=== PATIENT | female | born 1955 | race Caucasian/White ===

== ENCOUNTER 2019-01-01 16:17 | Emergency (ER) | payer BC ==
--- NOTE | 2019-01-01 17:57 | XR ---
EXAMINATION TYPE: XR chest 2V DATE OF EXAM: 01/01/2019 COMPARISON: 06/08/2013 HISTORY: Cough TECHNIQUE: Frontal and lateral views of the chest are obtained. FINDINGS: There is some small linear density in the left midlung. Heart and mediastinum are normal. Diaphragm is normal. There are chest leads. Bony thorax is intact. IMPRESSION: Minimal scarring or subsegmental atelectasis left midlung. Normal heart.
[2019-01-01 18:05] LABS: Basophils # (A) 0.1 k/uL (0-0.2); Basophils % (A) 1 %; Eosinophils # (A) 0.6 k/uL (0-0.7); Eosinophils % (A) 6 %; HGB 11.5 gm/dL (11.4-16.0); Lymphocytes # (A) 1.7 k/uL (1.0-4.8); Lymphocytes % (A) 17 %; MCH 25.8 pg (25.0-35.0); MCHC 31.9 g/dL (31.0-37.0); MCV 80.8 fL (80.0-100.0); Mean Platelet Volume 8.5; Monocytes # (A) 0.7 k/uL (0-1.0); Monocytes % (A) 7 %; Neutrophils % (A) 69 %; Platelet Count 277 k/uL (150-450); RBC 4.45 m/uL (3.80-5.40); RDW 14.7 % (11.5-15.5); WBC 10.1 k/uL (3.8-10.6)
[2019-01-01 18:15] LABS: Albumin 3.3 g/dL (3.5-5.0); C Reactive Protein 28.9 mg/L (<10.0); Calcium 9.8 mg/dL (8.4-10.2); Magnesium 1.8 mg/dL (1.6-2.3); Potassium 5.3 mmol/L (3.5-5.1); Total Bilirubin 0.3 mg/dL (0.2-1.3); Total Protein 6.2 g/dL (6.3-8.2)
[2019-01-01 18:38] LABS: INR 0.8 (<1.2); Prothrombin Time 9.3 sec (9.0-12.0)
[2019-01-01 18:40] LABS: Partial Thromboplastin Time 20.8 sec (22.0-30.0)
--- NOTE | 2019-01-01 18:58 | CT ---
EXAMINATION TYPE: CT soft tissue neck wo con DATE OF EXAM: 01/01/2019 HISTORY: Right sided mandible pain. COMPARISON: CT DLP: 267.8 mGycm. Automated Exposure Control for Dose Reduction was Utilized. TECHNIQUE: Multiple axial sections were obtained of the cervical soft tissues from the aortic arch to the orbits without contrast. FINDINGS: Epiglottis is normal. Subglottic trachea appears normal. There is heterogeneous density in the thyroi d gland with calcifications. There are multiple enlarged bilateral submandibular lymph nodes that jane sure up to 2 cm. Submandibular salivary glands are symmetric. Parotid glands are symmetric. The jordan bular ring appears intact. There is anterior subluxation of the mandibular condyles. The jaw is close d. There is fairly normal aeration of the visualized paranasal sinuses. Tonsils and adenoids are within normal limits. There is no evidence of pharyngeal mass. The tongue appears normal. The maxilla appear s intact. I see no bony destructive process. IMPRESSION: There is bilateral abnormal anterior subluxation of the mandibular condyles with the mout h in closed position. No fracture seen. Submandibular lymphadenopathy there is worse on the right side.
[2019-01-01 19:46] LABS: Erythrocyte Sedimentation Rate 41 mm/hr (0-20)
[2019-01-01] MEDS ORDERED: LIDOCAINE 1% INJ 10MG/ML (20 ML MDV) SQ ONE (20:30)
[2019-01-01] MEDS ORDERED: CLINDAMYCIN 150 MG CAP PO STA (22:22)
--- NOTE | 2019-01-01 22:22 | ED ---
General Adult HPI - General Chief complaint: Recheck/Abnormal Lab/Rx Stated complaint: Bradycardia Source: EMS Mode of arrival: EMS Limitations: no limitations - History of Present Illness Initial comments: The patient is a 63-year-old female who presents to the emergency department from an urgent care. She reports that she went into the urgent care earlier today for a dental abscess. Vitals were obtained and was noted the patient was bradycardic. They from an EKG and the patient which demonstrated a markedly sinus bradycardia. Because of this did recommend transfer to the hospital. The patient does arrive by EMS. She states that she has no complaints of chest pain, shortness of breath, syncope or presyncope. She has a previous cardiac history. Denies history of arrhythmias or IA. Patient does take several medications for hypertension. She denies the possibility taking excess of her medication. Reports that she has never had a stress test. She is unsure of her last EKG. She noted to have right-sided jaw pain and swelling which began yesterday. She has poor dentition and was concerned for an abscessed tooth. She denies any oral swelling. Denies neck pain or stiffness. No difficulty swallowing. No reported fevers, chills, nausea or vomiting. No drooling, trismus, hoarseness or stridor. No abdominal pain or changes in bowel or bladder habits. There are no alleviating, precipitating or modifying factors - Related Data Home Medications Medication Instructions Recorded Confirmed Allopurinol [Zyloprim] 100 mg PO DAILY 01/01/19 01/01/19 Aspirin [[place] Aspirin EC] 81 mg PO DAILY 01/01/19 01/01/19 Atorvastatin Calcium [Lipitor] 10 mg PO HS 01/01/19 01/01/19 Calcitriol 0.5 mcg PO TU 01/01/19 01/01/19 Cholecalciferol [Vitamin D3 (25 2,000 unit PO DAILY 01/01/19 01/01/19 Mcg = 1000 Iu)] Ferrous Sulfate [Feosol] 325 mg PO DAILY 01/01/19 01/01/19 Glimepiride [Amaryl] 2 mg PO BID 01/01/19 01/01/19 Hydrochlorothiazide [Hydrodiuril] 25 mg PO DAILY 01/01/19 01/01/19 Lisinopril 20 mg PO BID 01/01/19 01/01/19 Metoprolol Tartrate [Lopressor] 50 mg PO DAILY 01/01/19 01/01/19 Potassium Chloride ER [K-Dur 20] 20 meq PO BID 01/01/19 01/01/19 Spironolactone [Aldactone] 25 mg PO DAILY 01/01/19 01/01/19 amLODIPine [Norvasc] 5 mg PO BID 01/01/19 01/01/19 cloNIDine HCL [Catapres] 0.2 mg PO TID 01/01/19 01/01/19 sitaGLIPtin [Januvia] 100 mg PO DAILY 01/01/19 01/01/19 Previous Rx's Medication Instructions Recorded Clindamycin [Cleocin] 450 mg PO Q8HR #63 capsule 01/01/19 Allergies Allergy/AdvReac Type Severity Reaction Status Date / Time No Known Allergies Allergy Verified 01/01/19 16:46 Review of Systems ROS Statement: Those systems with pertinent positive or pertinent negative responses have been documented in the HPI. ROS Other: All systems not noted in ROS Statement are negative. Past Medical History Past Medical History: Diabetes Mellitus, Hypertension, Renal Disease History of Any Multi-Drug Resistant Organisms: None Reported Past Surgical History: Cholecystectomy, Tubal Ligation Past Psychological History: No Psychological Hx Reported Smoking Status: Never smoker Past Alcohol Use History: None Reported Past Drug Use History: None Reported General Exam Limitations: no limitations Course Vital Signs 01/01/19 01/01/19 01/01/19 16:35 16:50 18:30 Temperature 98.0 F Pulse Rate 45 L 48 L Pulse Rate [ 48 L Senior [employer] ] Respiratory 18 16 Rate Blood Pressure 149/66 147/68 O2 Sat by Pulse 98 98 Oximetry 01/01/19 22:49 Temperature 97.7 F Pulse Rate 87 Pulse Rate [ Senior [employer] ] Respiratory 16 Rate Blood Pressure 167/67 O2 Sat by Pulse 97 Oximetry EKG Findings - EKG Comments: EKG Findings:: EKG demonstrates a sinus bradycardia with a ventricular rate of 46. MA interval 184. QRS 88. QTc 383. There are acute ST segment elevations in 2 aVF and V2 through V6. There are cervical changes in 1 and aVL. The patient does bring an EKG with her from an outside facility which demonstrates ST elevation in leads 1, 2, V2 through V3. There are reciprocal changes in aVL Medical Decision Making - Medical Decision Making Upon arrival the patient is placed into room 3. She has hooked up to continue his pulse ox and cardiac monitoring. A 12-lead EKG is performed which demonstrates a markedly his bradycardia. There is minimal ST elevation. The patient is asymptomatic at this time. Evaluation of the patient's right jaw does reveal appreciable swelling. Because of this I did recommend laboratory studies and a CT of the patient's neck. Upon return results I did discuss them with the patient. The patient does not have any issues opening or closing her mouth. She does report a chronic history of underbite. I did attempt to drain the patient's dental abscess however I and unsuccessful as the abscesses 2D. I did recommend admission to the hospital for evaluation by ENT, IV antibiotics and evaluation by cardiology for her bradycardia. The patient refused stating that she wanted to go home. Discussed the risks of leaving with the patient. She is of sound mind kibble making her own decisions. I informed her of the risks of bleeding to include permanent disability and . Patient understood. She does have her and daughter at bedside who agree with her decision. Informed patient that she would be leaving AGAINST MEDICAL ADVICE and she understood this. I did provide the patient with 450 mg of clindamycin and a course of clindamycin at home. She must follow up with her dentist for further treatment. If she has any new or worsening symptoms she should return to the emergency department. Patient was in agreement she will plan and discharged against medical advice - Lab Data Result diagrams: 01/01/19 17:18 01/01/19 17:18 Lab Results 01/01/19 01/01/19 01/01/19 Range/Units 17:18 17:18 17:18 WBC 10.1 (3.8-10.6) k/uL RBC 4.45 (3.80-5.40) m/uL Hgb 11.5 (11.4-16.0) gm/dL Hct 36.0 (34.0-46.0) % MCV 80.8 (80.0-100.0) fL MCH 25.8 (25.0-35.0) pg MCHC 31.9 (31.0-37.0) g/dL RDW 14.7 (11.5-15.5) % Plt Count 277 (150-450) k/uL Neutrophils % 69 % Lymphocytes % 17 % Monocytes % 7 % Eosinophils % 6 % Basophils % 1 % Neutrophils # 7.0 (1.3-7.7) k/uL Lymphocytes # 1.7 (1.0-4.8) k/uL Monocytes # 0.7 (0-1.0) k/uL Eosinophils # 0.6 (0-0.7) k/uL Basophils # 0.1 (0-0.2) k/uL ESR 41 H (0-20) mm/hr PT 9.3 (9.0-12.0) sec INR 0.8 (<1.2) APTT 20.8 L (22.0-30.0) sec Sodium 135 L (137-145) mmol/L Potassium 5.3 H (3.5-5.1) mmol/L Chloride 105 (98-107) mmol/L Carbon Dioxide 20 L (22-30) mmol/L Anion Gap 10 mmol/L BUN 43 H (7-17) mg/dL Creatinine 1.84 H (0.52-1.04) mg/dL Est GFR (CKD-EPI)AfAm 33 (>60 ml/min/1.73 sqM) Est GFR (CKD-EPI)NonAf 29 (>60 ml/min/1.73 sqM) Glucose 279 H (74-99) mg/dL Plasma Lactic Acid Johnny (0.7-2.0) mmol/L Calcium 9.8 (8.4-10.2) mg/dL Magnesium 1.8 (1.6-2.3) mg/dL Total Bilirubin 0.3 (0.2-1.3) mg/dL AST 15 (14-36) U/L ALT 16 (9-52) U/L Alkaline Phosphatase 151 H (38-126) U/L Troponin I (0.000-0.034) ng/mL C-Reactive Protein 28.9 H (<10.0) mg/L Total Protein 6.2 L (6.3-8.2) g/dL Albumin 3.3 L (3.5-5.0) g/dL 01/01/19 01/01/19 Range/Units 17:18 18:53 WBC (3.8-10.6) k/uL RBC (3.80-5.40) m/uL Hgb (11.4-16.0) gm/dL Hct (34.0-46.0) % MCV (80.0-100.0) fL MCH (25.0-35.0) pg MCHC (31.0-37.0) g/dL RDW (11.5-15.5) % Plt Count (150-450) k/uL Neutrophils % % Lymphocytes % % Monocytes % % Eosinophils % % Basophils % % Neutrophils # (1.3-7.7) k/uL Lymphocytes # (1.0-4.8) k/uL Monocytes # (0-1.0) k/uL Eosinophils # (0-0.7) k/uL Basophils # (0-0.2) k/uL ESR (0-20) mm/hr PT (9.0-12.0) sec INR (<1.2) APTT (22.0-30.0) sec Sodium (137-145) mmol/L Potassium (3.5-5.1) mmol/L Chloride (98-107) mmol/L Carbon Dioxide (22-30) mmol/L Anion Gap mmol/L BUN (7-17) mg/dL Creatinine (0.52-1.04) mg/dL Est GFR (CKD-EPI)AfAm (>60 ml/min/1.73 sqM) Est GFR (CKD-EPI)NonAf (>60 ml/min/1.73 sqM) Glucose (74-99) mg/dL Plasma Lactic Acid Johnny 1.2 (0.7-2.0) mmol/L Calcium (8.4-10.2) mg/dL Magnesium (1.6-2.3) mg/dL Total Bilirubin (0.2-1.3) mg/dL AST (14-36) U/L ALT (9-52) U/L Alkaline Phosphatase (38-126) U/L Troponin I <0.012 (0.000-0.034) ng/mL C-Reactive Protein (<10.0) mg/L Total Protein (6.3-8.2) g/dL Albumin (3.5-5.0) g/dL Disposition Clinical Impression: Dental abscess, Sinus bradycardia, Chronic kidney disease Disposition: Left Against Medical Advice Condition: Serious Instructions (If sedation given, give patient instructions): Dental Abscess (ED) Additional Instructions: I recommended hospital admission. You are leaving AGAINST MEDICAL ADVICE. Please follow-up with her primary care physician tomorrow. You must follow-up with your dentist. You will need a complete cardiac workup. Return to the emergency room if you have any new or worsening symptoms or agree to hospital admission Prescriptions: Clindamycin [Cleocin] 450 mg PO Q8HR #63 capsule Is patient prescribed a controlled substance at d/c from ED?: No Referrals: Antonieta Bolanos MD [Primary Care Provider] - 1-2 days Time of Disposition: 22:27
[2019-01-01 22:52] VITALS: BP 167/67; PULSE 87; RESP 16; TEMP 97.7
== END 2019-01-01 22:52 | disposition left against medical advice (07) ==
LOC: EC 16:17
DX: R00.1 Bradycardia, unspecified (principal); K04.7 Periapical abscess without sinus; I12.9 Hypertensive chronic kidney disease with stage 1 through stage 4 chronic kidney disease, or unspecified chronic kidney disease; N18.9 Chronic kidney disease, unspecified; E11.22 Type 2 diabetes mellitus with diabetic chronic kidney disease; Z90.49 Acquired absence of other specified parts of digestive tract; Z98.51 Tubal ligation status; Z79.82 Long term (current) use of aspirin; Z79.84 Long term (current) use of oral hypoglycemic drugs; Z79.899 Other long term (current) drug therapy
CPT/HCPCS: 36415; 93005; 80053; 85652; 83605; 83735; 84484; 85025; 85610; 85730; 86140; 71046; 70490; 99285; J2001

== ENCOUNTER → 2020-07-26 | Outpatient (CLI) | payer BC ==
[2020-07-30 16:38] LABS: Metanephrine, Free <25 pg/mL (< OR = 57); Normetanephrine, Free 72 pg/mL (< OR = 148); Total, Free (MN + NMN) 72 pg/mL (< OR = 205)
== END | disposition home or self-care (01) ==
LOC: LABWHC1 08:27
PROVIDERS: ATTEND Urology
DX: E27.9 Disorder of adrenal gland, unspecified (principal); R94.4 Abnormal results of kidney function studies
CPT/HCPCS: 36415; 82088; 82533; 83835; 84244

== ENCOUNTER 2022-03-13 13:42 | Observation (INO) | payer MEDICARE ==
--- NOTE | 2022-03-13 14:49 | ED ---
General Adult HPI - General Chief complaint: Syncope Stated complaint: Syncope Time Seen by Provider: 03/13/22 13:57 Source: patient, EMS, RN notes reviewed Mode of arrival: EMS Limitations: no limitations - History of Present Illness Initial comments: Patient is a pleasant 66-year-old female presenting to the emergency department with syncopal episode. Episode occurred prior to arrival. Patient was waiting in line at [facility] when she lightheaded and then passed out. Patient did fall down however no injury. Patient denies head trauma. No headache or confusion. No weakness. No chest pain or dyspnea. No abdominal or back pain. Patient did have an episode of syncope many years ago. - Related Data Home Medications Medication Instructions Recorded Confirmed Aspirin [[place] Aspirin EC] 81 mg PO DAILY 01/01/19 01/01/19 Atorvastatin Calcium [Lipitor] 10 mg PO HS 01/01/19 01/01/19 Cholecalciferol [Vitamin D3 (25 2,000 unit PO DAILY 01/01/19 01/01/19 Mcg = 1000 Iu)] Ferrous Sulfate [Feosol] 325 mg PO DAILY 01/01/19 01/01/19 Glimepiride [Amaryl] 2 mg PO BID 01/01/19 01/01/19 Metoprolol Tartrate [Lopressor] 50 mg PO DAILY 01/01/19 01/01/19 Potassium Chloride ER [K-Dur 20] 20 meq PO BID 01/01/19 01/01/19 Spironolactone [Aldactone] 25 mg PO DAILY 01/01/19 01/01/19 allopurinoL [Zyloprim] 100 mg PO DAILY 01/01/19 01/01/19 amLODIPine [Norvasc] 5 mg PO BID 01/01/19 01/01/19 calcitrioL [Calcitriol] 0.5 mcg PO TU 01/01/19 01/01/19 cloNIDine HCL [Catapres] 0.2 mg PO TID 01/01/19 01/01/19 hydroCHLOROthiazide [Hydrodiuril] 25 mg PO DAILY 01/01/19 01/01/19 lisinopriL 20 mg PO BID 01/01/19 01/01/19 sitaGLIPtin [Januvia] 100 mg PO DAILY 01/01/19 01/01/19 Previous Rx's Medication Instructions Recorded Clindamycin [Cleocin] 450 mg PO Q8HR #63 capsule 01/01/19 Allergies Allergy/AdvReac Type Severity Reaction Status Date / Time No Known Allergies Allergy Verified 01/01/19 16:46 Review of Systems ROS Statement: Those systems with pertinent positive or pertinent negative responses have been documented in the HPI. ROS Other: All systems not noted in ROS Statement are negative. Constitutional: Denies: fever Eyes: Denies: eye pain ENT: Denies: ear pain Respiratory: Denies: cough Cardiovascular: Denies: chest pain Endocrine: Denies: fatigue Gastrointestinal: Denies: abdominal pain Genitourinary: Denies: dysuria Musculoskeletal: Denies: back pain Skin: Denies: rash Neurological: Denies: weakness Past Medical History Past Medical History: Diabetes Mellitus, Hypertension, Renal Disease History of Any Multi-Drug Resistant Organisms: None Reported Past Surgical History: Cholecystectomy, Tubal Ligation Past Psychological History: No Psychological Hx Reported Smoking Status: Never smoker Past Alcohol Use History: None Reported Past Drug Use History: None Reported General Exam Limitations: no limitations General appearance: alert, in no apparent distress Head exam: Present: atraumatic, normocephalic Eye exam: Present: normal appearance, PERRL, EOMI ENT exam: Present: normal oropharynx Neck exam: Present: normal inspection Respiratory exam: Present: normal lung sounds bilaterally Cardiovascular Exam: Present: regular rate, normal rhythm Expanded Peripheral pulses: 2+: Radial (R), Radial (L), Dorsalis Pedis (R), Dorsalis Pedis (L) GI/Abdominal exam: Present: soft. Absent: distended, tenderness, guarding, rebound, rigid, pulsatile mass Extremities exam: Present: normal inspection. Absent: pedal edema, calf tenderness Neurological exam: Present: alert, CN II-XII intact. Absent: motor sensory deficit Expanded Neurological exam: Present: protecting the airway Speech: Present: fluid speech Cranial nerves: EOM's Intact: Normal, Facial Sensation: Normal Sensory exam: Upper Extremity Light Touch: Normal, Lower Extremity Light Touch: Normal Motor strength exam: RUE: 5, LUE: 5, RLE: 5, LLE: 5 Eye Response: (4) open spontaneously Motor Response: (6) obeys commands Verbal Response: (5) oriented Psychiatric exam: Present: normal affect, normal mood Skin exam: Present: normal color Course Vital Signs 03/13/22 03/13/22 03/13/22 13:55 14:01 15:07 Temperature 98.8 F 98.8 F Pulse Rate 58 L 58 L 58 L Respiratory 18 18 16 Rate Blood Pressure 153/68 152/67 145/66 O2 Sat by Pulse 99 98 98 Oximetry EKG Findings - EKG Comments: EKG Findings:: Size pericardial 59. For screening AV block OK 202. QRS 105. QT 4:30. QTC 429. Left axis. Septal Q waves. No acute ST change. Medical Decision Making - Medical Decision Making Patient reevaluated and resting comfortably in bed. Patient updated on results and plan. Case was discussed with Dr. Phelan, who will admit For Dr. Triplett. - Lab Data Result diagrams: 03/13/22 14:51 03/13/22 14:51 Lab Results 03/13/22 03/13/22 03/13/22 Range/Units 14:51 14:51 14:51 WBC 6.5 (3.8-10.6) k/uL RBC 3.35 L (3.80-5.40) m/uL Hgb 9.8 L (11.4-16.0) gm/dL Hct 30.0 L (34.0-46.0) % MCV 89.6 (80.0-100.0) fL MCH 29.2 (25.0-35.0) pg MCHC 32.5 (31.0-37.0) g/dL RDW 14.7 (11.5-15.5) % MPV 10.9 Sodium 139 (137-145) mmol/L Potassium 3.9 (3.5-5.1) mmol/L Chloride 107 (98-107) mmol/L Carbon Dioxide 22 (22-30) mmol/L Anion Gap 10 mmol/L BUN 47 H (7-17) mg/dL Creatinine 1.76 H (0.52-1.04) mg/dL Est GFR (CKD-EPI)AfAm 34 (>60 ml/min/1.73 sqM) Est GFR (CKD-EPI)NonAf 30 (>60 ml/min/1.73 sqM) Glucose 73 L (74-99) mg/dL Calcium 9.8 (8.4-10.2) mg/dL Magnesium 1.8 (1.6-2.3) mg/dL Total Bilirubin 0.3 (0.2-1.3) mg/dL AST 20 (14-36) U/L ALT 14 (4-34) U/L Alkaline Phosphatase 119 (38-126) U/L Troponin I <0.012 (0.000-0.034) ng/mL Total Protein 5.7 L (6.3-8.2) g/dL Albumin 3.4 L (3.5-5.0) g/dL - Radiology Data Radiology results: report reviewed (CT brain reveals no acute abnormality.), image reviewed (X-ray shows chronic changes without acute abnormality) Disposition Clinical Impression: Syncope Disposition: ADMITTED IP TO THIS HOSP Is patient prescribed a controlled substance at d/c from ED?: No Referrals: Dunia Triplett MD [Primary Care Provider] - 1-2 days Time of Disposition: 16:16
[2022-03-13 15:12] LABS: Basophils % (A) 0 %; Eosinophils # (A) 0.2 k/uL (0-0.7); Eosinophils % (A) 3 %; HGB 9.8 gm/dL (11.4-16.0); Lymphocytes # (A) 1.5 k/uL (1.0-4.8); Lymphocytes % (A) 22 %; MCH 29.2 pg (25.0-35.0); MCHC 32.5 g/dL (31.0-37.0); MCV 89.6 fL (80.0-100.0); Mean Platelet Volume 10.9; Monocytes # (A) 0.4 k/uL (0-1.0); Monocytes % (A) 6 %; Neutrophils # (A) 4.3 k/uL (1.3-7.7); Neutrophils % (A) 66 %; RBC 3.35 m/uL (3.80-5.40); RDW 14.7 % (11.5-15.5); WBC 6.5 k/uL (3.8-10.6)
--- NOTE | 2022-03-13 15:34 | CT ---
EXAMINATION TYPE: CT brain wo con DATE OF EXAM: 03/13/2022 COMPARISON: 05/31/2013 HISTORY: syncope CT DLP: 1041.[address] of the brain was performed. The ventricles, basal cisterns and sulci overlying the cerebral convexities demonstrate mild enlargem ent. There is no evidence for intracranial hemorrhage or sulcal effacement. There is decreased attenuation about the periventricular white matter and deep white matter of both c erebral hemispheres, compatible with chronic small vessel ischemia. Differential diagnosis does inclu de demyelination. No mass effects are seen.No midline shift. Osseous calvarium is intact. If symptoms persist consider MRI. IMPRESSION: 1. Age related atrophic and chronic small vessel ischemic change without acute intracranial process s een at this time.
--- NOTE | 2022-03-13 15:38 | XR ---
EXAMINATION TYPE: XR chest 2V DATE OF EXAM: 03/13/2022 COMPARISON: Chest x-ray January 01, 2019 HISTORY: Syncope and weakness. TECHNIQUE: Frontal and lateral views of the chest are obtained. FINDINGS: Stable anterolateral left lingular linear scarring and/or atelectasis . There is mild chron ic parenchyma change without suspicious new focal air space opacity, pleural effusion, or pneumothora x seen. The cardiac silhouette size is stable and within normal limits. The osseous structures rem ain demineralized. IMPRESSION: Chronic changes without acute pulmonary process.
[2022-03-13 15:45] LABS: Albumin 3.4 g/dL (3.5-5.0); Calcium 9.8 mg/dL (8.4-10.2); Magnesium 1.8 mg/dL (1.6-2.3); Potassium 3.9 mmol/L (3.5-5.1); Total Bilirubin 0.3 mg/dL (0.2-1.3); Total Protein 5.7 g/dL (6.3-8.2)
[2022-03-13] MEDS ORDERED: NALOXONE 0.4 MG/ML 1 ML VIAL IV PRN (16:16)
[2022-03-13] MEDS: SODIUM CHLORIDE 0.9% 1,000 ML IV SCH (16:27)
[2022-03-13 17:25] LABS: INR 0.9 (<1.2)
[2022-03-13 18:02] LABS: HCT 31.5 % (34.0-46.0); HGB 9.8 gm/dL (11.4-16.0); MCH 28.5 pg (25.0-35.0); MCHC 31.3 g/dL (31.0-37.0); MCV 91.3 fL (80.0-100.0); Mean Platelet Volume 9.2; Platelet Count 209 k/uL (150-450); RBC 3.45 m/uL (3.80-5.40); RDW 14.4 % (11.5-15.5); WBC 11.1 k/uL (3.8-10.6)
[2022-03-13] MEDS ORDERED: DEXTROSE 50% SYRINGE 50 ML IVP PRN ×2 (18:04)
[2022-03-13] MEDS: INSULIN ASPART (NovoLOG) 100 UNIT/ML VIAL SQ SCH (18:20)
--- NOTE | 2022-03-13 19:43 | P.HPIM ---
History of Present Illness H&P Date: 03/13/22 Chief Complaint: Past out This is a pleasant 66-year-old patient of follows with Dr. Natalie Triplett. Chronic stable medical conditions include diabetes mellitus, hypertension, renal disease. Patient had a normal morning with a breakfast of popcorn and has 16 ounces of water. Then went to shop at [email or web address]. Shopping for about 20 minutes. Stenting of the line. She suddenly passed out. Less than 5 minutes. Came around on her own. No prior chest pain or palpitation. Has not been feeling any dizziness. No neurological symptoms. Does see a dredge lever operator for low heart rate. Review of systems: GEN.: None EYES: None HEENT: None NECK: None RESPIRATORY: None CARDIOVASCULAR: None GASTROINTESTINAL: None GENITOURINARY: None MUSCULOSKELETAL: None LYMPHATICS: None HEMATOLOGICAL: None PSYCHIATRY: None NEUROLOGICAL: None Past medical history to include: Diabetes, hypertension, kidney disease Social history: No smoking or alcohol. . Physical examination: VITAL SIGNS: 97.9, 58, 16, 1 37 x 70, no orthostatic 96% room air GENERAL: BMI 44.8 resting in bed, comfortable,. EYES: Pupils equal. Conjunctiva normal. HEENT: External appearance of nose and ears normal, oral cavity grossly normal. NECK: JVD not raised; masses not palpable. HEART: First and second heart sounds are normal; no edema. LUNGS: Respiratory rate normal; clear to auscultation. ABDOMEN: Soft, nontender, liver spleen not palpable, no masses palpable. PSYCH: Alert and oriented x3; mood and affect normal. MUSCULOSKELETAL:No Clubbing/cyanosis;muscles-grossly intact NEUROLOGICAL: Cranial nerves grossly intact; no facial asymmetry, power and sensation grossly intact. LYMPHATICS: No lymph nodes palpable in the axilla and neck INVESTIGATIONS, reviewed in the clinical context: WBC 6.5 hemoglobin 9.8 platelets 209 potassium 3.9 BUN 47 creatinine 1.76 Troponin I less than 0.012 EKG tracing personally reviewed by me-normal sinus rhythm, rate 59 Chest x-ray film personally reviewed by me-unremarkable CT brain: Age-related atrophy Assessment and plan: -Episode of passing out. Most likely vasovagal. Patient did not have any premonitory symptoms. No cardiac symptoms. Does have a history of bradycardia. We will do telemetry for 24 hours to rule out any bradycardic episodes. -Morbid obesity BMI 44.8 Weight loss measures -Chronic kidney disease stage III from diabetic nephropathy -Diabetes mellitus type 2 Insulin, follow sliding scale insulin -Essential hypertension Lisinopril, Coreg, Norvasc-hold, prazosin, -Hyperlipidemia Lipitor Resume home medications. Levemir at 36 units subcu daily. Follow Accu-Cheks. Hold Norvasc. Gentle hydration. Telemetry. Past Medical History Past Medical History: Diabetes Mellitus, Hypertension, Renal Disease History of Any Multi-Drug Resistant Organisms: None Reported Past Surgical History: Cholecystectomy, Tubal Ligation Past Psychological History: No Psychological Hx Reported Smoking Status: Never smoker Past Alcohol Use History: None Reported Past Drug Use History: None Reported Medications and Allergies Home Medications Medication Instructions Recorded Confirmed Type Aspirin [[place] Aspirin EC] 81 mg PO DAILY 01/01/19 03/13/22 History Atorvastatin Calcium [Lipitor] 10 mg PO HS 01/01/19 03/13/22 History Ferrous Sulfate [Feosol] 325 mg PO AC-BID 01/01/19 03/13/22 History Glimepiride [Amaryl] 2 mg PO AC-BID 01/01/19 03/13/22 History Potassium Chloride ER [K-Dur 20] 20 meq PO DAILY 01/01/19 03/13/22 History Spironolactone [Aldactone] 25 mg PO DAILY 01/01/19 03/13/22 History allopurinoL [Zyloprim] 100 mg PO AC-BID 01/01/19 03/13/22 History calcitrioL [Calcitriol] 0.5 mcg PO MOWEFR 01/01/19 03/13/22 History sitaGLIPtin [Januvia] 100 mg PO DAILY 01/01/19 03/13/22 History Chlorthalidone [Hygroton] 25 mg PO DAILY 03/13/22 03/13/22 History Insulin Glargine,Hum.rec.anlog 45 units SQ DAILY 03/13/22 03/13/22 History [Lantus Solostar Pen] Isosorbide Mononitrate ER [Imdur] 60 mg PO DAILY 03/13/22 03/13/22 History Magnesium Oxide [Magox 400] 400 mg PO DAILY 03/13/22 03/13/22 History Prazosin [Minipress] 1 mg PO AC-BID 03/13/22 03/13/22 History Vit C/E/Zn/Coppr/Lutein/Zeaxan 1 cap PO BID 03/13/22 03/13/22 History [Preservision Areds 2 Softgel] amLODIPine [Norvasc] 10 mg PO DAILY 03/13/22 03/13/22 History carvediloL [Coreg] 6.25 mg PO AC-BID 03/13/22 03/13/22 History hydrALAZINE HCL [Apresoline] 100 mg PO AC-TID 03/13/22 03/13/22 History lisinopriL 2.5 mg PO DAILY 03/13/22 03/13/22 History Allergies Allergy/AdvReac Type Severity Reaction Status Date / Time No Known Allergies Allergy Verified 03/13/22 17:18 Physical Exam Vitals: Vital Signs Temp Pulse Pulse Pulse Pulse Resp BP 03/13/22 18:02 97.9 F 58 L 69 62 03/13/22 17:07 98.4 F 60 16 135/82 03/13/22 16:29 97.6 F 70 16 134/58 03/13/22 15:07 58 L 16 145/66 03/13/22 14:01 98.8 F 58 L 18 152/67 03/13/22 13:55 98.8 F 58 L 18 153/68 BP BP BP Pulse Ox 03/13/22 18:02 137/70 127/67 137/67 96 03/13/22 17:07 98 03/13/22 16:29 100 03/13/22 15:07 98 03/13/22 14:01 98 03/13/22 13:55 99 Intake and Output 03/13/22 03/13/22 03/13/22 06:59 14:59 22:59 Other: Weight 111.13 kg 111.13 kg Results CBC & Chem 7: 03/13/22 17:41 03/13/22 14:51 Labs: Abnormal Lab Results - Last 24 Hours (Table) 03/13/22 03/13/22 03/13/22 Range/Units 14:51 14:51 16:08 WBC (3.8-10.6) k/uL RBC 3.35 L (3.80-5.40) m/uL Hgb 9.8 L (11.4-16.0) gm/dL Hct 30.0 L (34.0-46.0) % APTT 18.0 L (22.0-30.0) sec BUN 47 H (7-17) mg/dL Creatinine 1.76 H (0.52-1.04) mg/dL Glucose 73 L (74-99) mg/dL Total Protein 5.7 L (6.3-8.2) g/dL Albumin 3.4 L (3.5-5.0) g/dL 03/13/22 Range/Units 17:41 WBC 11.1 H (3.8-10.6) k/uL RBC 3.45 L (3.80-5.40) m/uL Hgb 9.8 L (11.4-16.0) gm/dL Hct 31.5 L (34.0-46.0) % APTT (22.0-30.0) sec BUN (7-17) mg/dL Creatinine (0.52-1.04) mg/dL Glucose (74-99) mg/dL Total Protein (6.3-8.2) g/dL Albumin (3.5-5.0) g/dL Thrombosis Risk Factor Assmnt - Choose All That Apply Each Risk Factor Represents 2 Points: Age 61-74 years Thrombosis Risk Factor Assessment Total Risk Factor Score: 2 Thrombosis Risk Factor Assessment Level: Low Risk
[2022-03-13] MEDS: VIT A,C & E-LUTEIN-MINERALS 1 EACH TAB PO SCH (20:20)
[2022-03-13] MEDS ORDERED: ATORVASTATIN 10 MG TAB PO SCH (21:00)
[2022-03-13 21:20] LABS: Glucose,Whole Blood 211 mg/dL (70-110)
[2022-03-14 04:12] VITALS: RESP 18
[2022-03-14] MEDS: SODIUM CHLORIDE 0.9% 1,000 ML IV SCH (05:49)
[2022-03-14] MEDS ORDERED: INSULIN DETEMIR (LEVEMIR) 100 UNIT/ML SYR SQ SCH (07:00)
[2022-03-14] MEDS ORDERED: PRAZOSIN 1 MG CAP PO SCH (07:30)
[2022-03-14] MEDS ORDERED: allopurinoL 100 MG TAB PO SCH (07:30)
[2022-03-14] MEDS ORDERED: FERROUS SULFATE 325 MG TAB PO SCH (07:30)
[2022-03-14] MEDS ORDERED: GLIMEPIRIDE 2 MG TAB PO SCH (07:30)
[2022-03-14] MEDS ORDERED: carvediloL 6.25 MG TAB PO SCH (07:30)
[2022-03-14 07:48] LABS: Glucose,Whole Blood 64 mg/dL (70-110)
[2022-03-14 08:04] LABS: Glucose,Whole Blood 85 mg/dL (70-110)
[2022-03-14] MEDS: VIT A,C & E-LUTEIN-MINERALS 1 EACH TAB PO SCH (08:20)
[2022-03-14] MEDS: hydrALAZINE HCL 50 MG TAB PO SCH ×2 (08:20→13:34)
[2022-03-14] MEDS: INSULIN ASPART (NovoLOG) 100 UNIT/ML VIAL SQ SCH ×2 (08:21→12:34)
[2022-03-14] MEDS ORDERED: ISOSORBIDE MONONITRATE ER 60 MG TAB.ER.24H PO SCH (09:00)
[2022-03-14] MEDS ORDERED: CHLORTHALIDONE 25 MG TAB PO SCH (09:00)
[2022-03-14] MEDS ORDERED: LINAGLIPTIN 5 MG TABLET PO SCH (09:00)
[2022-03-14] MEDS ORDERED: SPIRONOLACTONE 25 MG TAB PO SCH (09:00)
[2022-03-14] MEDS ORDERED: ASPIRIN 81 MG PO SCH (09:00)
[2022-03-14] MEDS ORDERED: ACETAMINOPHEN TAB 500 MG TAB PO PRN (09:16)
[2022-03-14 12:26] LABS: Glucose,Whole Blood 109 mg/dL (70-110)
--- NOTE | 2022-03-14 12:44 | CA ---
Transthoracic Echo Report Name: Regina Kenyon Age: 66 Gender: F : 1955 Exam Date: 03/14/2022 10:35 Exam Location: [facility] Ht (in): 62 Wt (lb): 245 Ordering Physician: Gayle Bermudez Attending/Referring Phys: [place] Representative Susan Dong RDCS Procedure CPT: Indications: Syncope Cardiac Hx: Technical Quality: Good Contrast 1: Total Dose (mL): Contrast 2: Total Dose (mL): MEASUREMENTS (Male / Female) Normal Values 2D ECHO LV Diastolic Diameter PLAX 4.8 cm 4.2 - 5.9 / 3.9 - 5.3 cm LV Systolic Diameter PLAX 3.5 cm IVS Diastolic Thickness 1.8 cm 0.6 - 1.0 / 0.6 - 0.9 cm LVPW Diastolic Thickness 2.0 cm 0.6 - 1.0 / 0.6 - 0.9 cm LV Relative Wall Thickness 0.8 RV Internal Dim ED PLAX 3.2 cm LA Systolic Diameter LX 4.9 cm 3.0 - 4.0 / 2.7 - 3.8 cm LA Volume 121.0 cm??? 18 - 58 / 22 - 52 cm??? M-MODE Aortic Root Diameter MM 3.3 cm LA Systolic Diameter MM 4.1 cm LA Ao Ratio MM 1.3 MV E Point Septal Separation 0.3 cm AV Cusp Separation MM 2.6 cm DOPPLER AV Peak Velocity 176.4 cm/s AV Peak Gradient 12.4 mmHg MV Area PHT 3.2 cm??? Mitral E Point Velocity 57.8 cm/s Mitral A Point Velocity 85.0 cm/s Mitral E to A Ratio 0.7 MV Deceleration Time 239.1 ms MV E' Velocity 4.9 cm/s Mitral E to MV E' Ratio 11.7 FINDINGS Left Ventricle Left ventricular ejection fraction is estimated at 50-55 %. Moderately increased left ventricular wall thickness. Right Ventricle Normal right ventricular size and function. Right ventricular systolic pressure within normal limits. Right Atrium Normal right atrial size. Left Atrium Severely increased left atrial diameter. Severely increased left atrial volume. Mildly increased left atrial area. Mitral Valve Structurally normal mitral valve. Mild mitral regurgitation. Aortic Valve Trileaflet aortic valve. Tricuspid Valve Structurally normal tricuspid valve. Pulmonic Valve Structurally normal pulmonic valve. Pericardium Normal pericardium. Aorta Normal size aortic root and proximal ascending aorta. CONCLUSIONS Concentric left ventricular hypertrophy with normal LV function Left atrial enlargement Mild mitral regurgitation Previewed by: Dr. Andreas Cage MD (Electronically Signed) Final Date: 14 March 2022 12:44
[2022-03-14 14:07] VITALS: BP 129/70; TEMP 98.4
[2022-03-14 14:10] VITALS: PULSE 62
--- NOTE | 2022-03-14 14:59 | P.DS ---
Providers Date of admission: 03/13/22 16:16 Expected date of discharge: 03/14/22 Attending physician: Justen Phelan Consults: 03/13/22 16:16 Consult Physician Routine Consulting Provider: Lance Driscoll Consult Reason/Comments: syncope Do you want consulting provider notified?: Yes Primary care physician: Dunia Triplett [facility] Course: Chief Complaint: Past out This is a pleasant 66-year-old patient of follows with Dr. Natalie Triplett. Chronic stable medical conditions include diabetes mellitus, hypertension, renal disease. Patient had a normal morning with a breakfast of popcorn and has 16 ounces of water. Then went to shop at [employer]. Shopping for about 20 minutes. Stenting of the line. She suddenly passed out. Less than 5 minutes. Came around on her own. No prior chest pain or palpitation. Has not been feeling any dizziness. No neurological symptoms. Does see a webbing supervisor for low heart rate. March 14: No new symptoms. Overnight did have a 2 second pause. Seen by cardiology Enrico Matos. Cleared for discharge. No change in medications. Dose of Lantus cutback. Amlodipine discontinued. Past medical history to include: Diabetes, hypertension, kidney disease Social history: No smoking or alcohol. . Physical examination: VITAL SIGNS: 98.2, 72, 18, 1 47 x 74, 93% room air GENERAL: resting in bed, comfortable,. EYES: Pupils equal. Conjunctiva normal. HEENT: External appearance of nose and ears normal, oral cavity grossly normal. NECK: JVD not raised; masses not palpable. HEART: First and second heart sounds are normal; no edema. LUNGS: Respiratory rate normal; clear to auscultation. ABDOMEN: Soft, nontender, liver spleen not palpable, no masses palpable. PSYCH: Alert and oriented x3; mood and affect normal. MUSCULOSKELETAL:No Clubbing/cyanosis;muscles-grossly intact INVESTIGATIONS, reviewed in the clinical context: 2-D echocardiogram: EF 50-55%. WBC 6.5 hemoglobin 9.8 platelets 209 potassium 3.9 BUN 47 creatinine 1.76 Troponin I less than 0.012 EKG tracing personally reviewed by me-normal sinus rhythm, rate 59 Chest x-ray film personally reviewed by me-unremarkable CT brain: Age-related atrophy Assessment and plan: -Episode of passing out. Most likely vasovagal. Patient did not have any premonitory symptoms. No cardiac symptoms. 2 second pause. Overnight. Seen by fabricio Harman Cleared for discharge. Follow up with her own webbing supervisor. -Morbid obesity BMI 44.8 Weight loss measures -Chronic kidney disease stage III from diabetic nephropathy -Diabetes mellitus type 2 Insulin, follow sliding scale insulin -Essential hypertension Lisinopril, Coreg, Norvasc-hold, prazosin, -Hyperlipidemia Lipitor Disposition: Home Plan - Discharge Summary Discharge Rx Participant: No New Discharge Prescriptions: Continue Glimepiride [Amaryl] 2 mg PO AC-BID Atorvastatin Calcium [Lipitor] 10 mg PO HS Potassium Chloride ER [K-Dur 20] 20 meq PO DAILY allopurinoL [Zyloprim] 100 mg PO AC-BID sitaGLIPtin [Januvia] 100 mg PO DAILY Spironolactone [Aldactone] 25 mg PO DAILY Aspirin [[place] Aspirin EC] 81 mg PO DAILY Ferrous Sulfate [Feosol] 325 mg PO AC-BID calcitrioL [Calcitriol] 0.5 mcg PO MOWEFR Prazosin [Minipress] 1 mg PO AC-BID Isosorbide Mononitrate ER [Imdur] 60 mg PO DAILY carvediloL [Coreg] 6.25 mg PO AC-BID hydrALAZINE HCL [Apresoline] 100 mg PO AC-TID Magnesium Oxide [Magox 400] 400 mg PO DAILY Vit C/E/Zn/Coppr/Lutein/Zeaxan [Preservision Areds 2 Softgel] 1 cap PO BID lisinopriL 2.5 mg PO DAILY Chlorthalidone [Hygroton] 25 mg PO DAILY Changed Insulin Glargine,Hum.rec.anlog [Lantus Solostar Pen] 36 units SQ DAILY #0 Discontinued amLODIPine [Norvasc] 10 mg PO DAILY Discharge Medication List Aspirin [[place] Aspirin EC] 81 mg PO DAILY 01/01/19 [History] Atorvastatin Calcium [Lipitor] 10 mg PO HS 01/01/19 [History] Ferrous Sulfate [Feosol] 325 mg PO AC-BID 01/01/19 [History] Glimepiride [Amaryl] 2 mg PO AC-BID 01/01/19 [History] Potassium Chloride ER [K-Dur 20] 20 meq PO DAILY 01/01/19 [History] Spironolactone [Aldactone] 25 mg PO DAILY 01/01/19 [History] allopurinoL [Zyloprim] 100 mg PO AC-BID 01/01/19 [History] calcitrioL [Calcitriol] 0.5 mcg PO MOWEFR 01/01/19 [History] sitaGLIPtin [Januvia] 100 mg PO DAILY 01/01/19 [History] Chlorthalidone [Hygroton] 25 mg PO DAILY 03/13/22 [History] Isosorbide Mononitrate ER [Imdur] 60 mg PO DAILY 03/13/22 [History] Magnesium Oxide [Magox 400] 400 mg PO DAILY 03/13/22 [History] Prazosin [Minipress] 1 mg PO AC-BID 03/13/22 [History] Vit C/E/Zn/Coppr/Lutein/Zeaxan [Preservision Areds 2 Softgel] 1 cap PO BID 03/13/22 [History] carvediloL [Coreg] 6.25 mg PO AC-BID 03/13/22 [History] hydrALAZINE HCL [Apresoline] 100 mg PO AC-TID 03/13/22 [History] lisinopriL 2.5 mg PO DAILY 03/13/22 [History] Insulin Glargine,Hum.rec.anlog [Lantus Solostar Pen] 36 units SQ DAILY #0 03/14/22 [Rx] Follow up Appointment(s)/Referral(s): Amie Harvey DO [REFERRING] - 1 Week Dunia Triplett MD [Primary Care Provider] - 1-2 days Andreas Cage MD [STAFF PHYSICIAN] - 1 Week
--- NOTE | 2022-03-14 21:46 | CONS ---
CONSULTATION CHIEF COMPLAINT: Syncope. HISTORY OF PRESENT ILLNESS: Regina is a 66-year-old lady with multiple medical problems, including hypertension, diabetes, dyslipidemia, who comes to hospital having had an episode of syncope. The patient has a history of heart murmur and currently follows with a counter maker out of [place]. Her EKG shows sinus rhythm with poor R-wave progression, which is chronic and stable. Three sets of cardiac enzymes have been negative. She is anemic with a hemoglobin of 9.8 and she has chronic renal insufficiency with elevated BUN and creatinine. The patient states that she went out grocery shopping and was standing in the line in [facility], when she suddenly became dizzy and had loss of consciousness. She is a diabetic, somewhat brittle, and has had episodes of hypoglycemia. Her blood sugar today was also 65 and she recovered spontaneously. She did not have bladder or bowel incontinence. Did not have seizures. Did not have any other cardiac symptoms. So far she has not had any tachy or bradyarrhythmias. Her physical exam is significant for an ejection systolic murmur in the aortic area. I will obtain a 2D echo on her today and if this looks okay, she can be ambulated and discharged home and arrange an outpatient stress test and event monitor. PAST MEDICAL HISTORY: Significant for hypertension, diabetes, dyslipidemia, and heart murmur. MEDICATIONS: Include: 1. Januvia. 2. Lisinopril. 3. Apresoline. 4. Coreg. 5. Norvasc. 6. Zyloprim. 7. Aldactone. 8. Minipress. 9. K-Dur. 10.Imdur. 11.Insulin. 12.Amaryl. 13.Lipitor. 14.Aspirin. ALLERGIES: No known drug allergies. FAMILY HISTORY: Negative for premature coronary artery disease. SOCIAL HISTORY: Negative for current smoking, EtOH abuse, or drug abuse. REVIEW OF SYSTEMS: HEENT: Unremarkable. CARDIAC: As described above. RESPIRATORY: As described above. GI: Negative. GENITOURINARY: Negative. ALLERGY/IMMUNOLOGY: Negative. SKIN: Negative. MUSCULOSKELETAL: Significant for arthritis. PSYCHOSOCIAL: Negative. DERM: Negative. CONSTITUTIONAL: Negative. ONCOLOGICAL: Negative. HAT BLOCKING MACHINE OPERATOR: Significant for syncope. Rest of the system review is not relevant. PHYSICAL EXAMINATION: GENERAL: Comfortable at rest. VITAL SIGNS: Afebrile, heart rate is 72 beats per minute, blood pressure is 180/82, respirations 18. O2 saturation is 93%. NECK: There is no jugular venous distention. Carotid upstroke is normal. There is no bruit. CHEST: Reveals good air entry bilaterally. HEART: Reveals first and second heart sounds. Ejection systolic murmur in the aortic area. ABDOMEN: Soft. EXTREMITIES: Did not reveal any edema. Peripheral pulses are felt. LABORATORY DATA: Labs show that myocardial infarction is ruled out. EKG is as described above. ASSESSMENT AND PLAN: 1. Syncope, rule out cardiac causes. 2. Hypertension. 3. Diabetes. 4. Dyslipidemia. 5. Chronic renal insufficiency. 6. Anemia. The patient does not have orthostatic changes. Syncope could be due to hypoglycemia. We have not documented any cardiac arrhythmias. I will obtain a 2D echo and ambulate her and if she is doing good discharge her home and consider an outpatient stress test and monitor. MMODL / IJN: [id number] /
== END 2022-03-14 15:41 | disposition home or self-care (01) ==
LOC: EC 13:42 → 6NMEDSUR 16:16
PROVIDERS: ADMIT Hospitalist; ATTEND Hospitalist
DX: R55 Syncope and collapse (principal); E11.22 Type 2 diabetes mellitus with diabetic chronic kidney disease; I12.9 Hypertensive chronic kidney disease with stage 1 through stage 4 chronic kidney disease, or unspecified chronic kidney disease; N18.30 Chronic kidney disease, stage 3 unspecified; E78.5 Hyperlipidemia, unspecified; D63.1 Anemia in chronic kidney disease; E66.01 Morbid (severe) obesity due to excess calories; Z68.41 Body mass index [BMI] 40.0-44.9, adult; Z79.4 Long term (current) use of insulin; Z79.899 Other long term (current) drug therapy; Z79.82 Long term (current) use of aspirin; Z79.84 Long term (current) use of oral hypoglycemic drugs
CPT/HCPCS: 99285; 36415; 93005; 93306; 80053; 83735; 84484; 85025; 85027; 85610; 85730; 71046; 70450; G0378 ×3